=== PATIENT | male | born 1940 | race Two or more races ===

== ENCOUNTER → 2017-07-25 | Outpatient (CLI) | payer BC ==
[2017-07-25 10:15] LABS: HEMATOCRIT 40.4 % (37.9-51.0); HEMOGLOBIN 13.6 g/dL (13.5-17.0); MEAN CORPUSCULAR HEMOGLOBIN 29.4 pg (27.0-33.4); MEAN CORPUSCULAR HGB CONC 33.6 g/dL (32.0-36.0); MEAN CORPUSCULAR VOLUME 87 fl (80-97); PLATELET COUNT 158 10^3/uL (150-450); RED BLOOD COUNT 4.63 10^6/uL (4.35-5.55); RED CELL DISTRIBUTION WIDTH 14.1 % (11.5-14.0); WHITE BLOOD COUNT 5.6 10^3/uL (4.0-10.5)
[2017-07-25 10:48] LABS: ANION GAP 9 (5-19); BLOOD UREA NITROGEN 15 mg/dL (7-20); CALCIUM 9.6 mg/dL (8.4-10.2); CARBON DIOXIDE 31 mmol/L (22-30); CHLORIDE 105 mmol/L (98-107); GLUCOSE 108 mg/dL (75-110); POTASSIUM 4.4 mmol/L (3.6-5.0)
== END ==
LOC: OD 09:22
PROVIDERS: ATTEND Internal Medicine Cardiovascular Disease
DX: I49.9 Cardiac arrhythmia, unspecified (principal); E78.2 Mixed hyperlipidemia; I10 Essential (primary) hypertension
CPT/HCPCS: 36415; 80048; 83735; 84443; 85027

== ENCOUNTER → 2017-09-13 | Outpatient (CLI) | payer BC ==
[2017-09-13 11:30] LABS: ALANINE AMINOTRANSFERASE 22 U/L (21-72); ALBUMIN 4.4 g/dL (3.5-5.0); ALKALINE PHOSPHATASE 67 U/L (38-126); ASPARTATE AMINO TRANSFERASE 22 U/L (17-59); BILIRUBIN,DIRECT 0.2 mg/dL (0.0-0.4); BILIRUBIN,TOTAL 0.8 mg/dL (0.2-1.3); CHOLESTEROL 213.29 mg/dL (0-200); CREATINE KINASE 47 U/L (55-170); TOTAL PROTEIN 7.3 g/dL (6.3-8.2); TRIGLYCERIDES 155 mg/dL (<150)
[2017-09-13 11:41] LABS: DIRECT LDL 124 mg/dL (<100)
== END ==
LOC: LAB 10:13
PROVIDERS: ATTEND Internal Medicine Cardiovascular Disease
DX: E78.2 Mixed hyperlipidemia (principal); R94.31 Abnormal electrocardiogram [ECG] [EKG]; I49.9 Cardiac arrhythmia, unspecified
CPT/HCPCS: 36415; 80061; 80076; 82550

== ENCOUNTER → 2017-11-04 | Outpatient (CLI) | payer BC ==
[2017-11-04 09:42] LABS: ALANINE AMINOTRANSFERASE 33 U/L (21-72); ALBUMIN 4.4 g/dL (3.5-5.0); ALKALINE PHOSPHATASE 70 U/L (38-126); ASPARTATE AMINO TRANSFERASE 25 U/L (17-59); BILIRUBIN,DIRECT 0.2 mg/dL (0.0-0.4); BILIRUBIN,TOTAL 1.1 mg/dL (0.2-1.3); CHOLESTEROL 150.77 mg/dL (0-200); TOTAL PROTEIN 7.7 g/dL (6.3-8.2); TRIGLYCERIDES 120 mg/dL (<150)
[2017-11-04 09:54] LABS: DIRECT LDL 70 mg/dL (<100)
== END ==
LOC: OD 08:41
PROVIDERS: ATTEND Internal Medicine Cardiovascular Disease
DX: E78.2 Mixed hyperlipidemia (principal); Z79.899 Other long term (current) drug therapy
CPT/HCPCS: 36415; 80061; 80076

== ENCOUNTER → 2018-05-17 | Outpatient (CLI) | payer BC ==
[2018-05-17 11:35] LABS: ALANINE AMINOTRANSFERASE 35 U/L (21-72); ALBUMIN 4.3 g/dL (3.5-5.0); ALKALINE PHOSPHATASE 83 U/L (38-126); ASPARTATE AMINO TRANSFERASE 26 U/L (17-59); BILIRUBIN,DIRECT 0.1 mg/dL (0.0-0.4); BILIRUBIN,TOTAL 1.1 mg/dL (0.2-1.3); CHOLESTEROL 174.63 mg/dL (0-200); TOTAL PROTEIN 6.7 g/dL (6.3-8.2); TRIGLYCERIDES 120 mg/dL (<150)
[2018-05-17 11:46] LABS: DIRECT LDL 101 mg/dL (<100)
== END ==
LOC: LAB 11:03
PROVIDERS: ATTEND Internal Medicine Cardiovascular Disease
DX: E78.2 Mixed hyperlipidemia (principal); Z79.899 Other long term (current) drug therapy
CPT/HCPCS: 36415; 80061; 80076

== ENCOUNTER → 2018-06-11 | Outpatient (CLI) | payer BC, MEDICARE ==
[2018-06-11 10:58] LABS: APPEARANCE,URINE CLEAR; BILIRUBIN,URINE NEGATIVE (NEGATIVE); COLOR,URINE YELLOW; GLUCOSE, URINE NEGATIVE (NEGATIVE); KETONES,URINE NEGATIVE (NEGATIVE); LEUKOCYTE ESTERASE,URINE SMALL (NEGATIVE); NITRITE,URINE NEGATIVE (NEGATIVE); PROTEIN,URINE NEGATIVE (NEGATIVE); URINE SPECIFIC GRAVITY 1.016; UROBILINOGEN,URINE NEGATIVE mg/dL (<2.0)
[2018-06-11 11:22] LABS: ALANINE AMINOTRANSFERASE 51 U/L (21-72); ALBUMIN 4.5 g/dL (3.5-5.0); ALKALINE PHOSPHATASE 81 U/L (38-126); ANION GAP 5 (5-19); ASPARTATE AMINO TRANSFERASE 33 U/L (17-59); BILIRUBIN,DIRECT 0.3 mg/dL (0.0-0.4); BLOOD UREA NITROGEN 13 mg/dL (7-20); CALCIUM 9.7 mg/dL (8.4-10.2); CARBON DIOXIDE 30 mmol/L (22-30); CHLORIDE 104 mmol/L (98-107); CHOLESTEROL 136.05 mg/dL (0-200); GLUCOSE 126 mg/dL (75-110); POTASSIUM 3.5 mmol/L (3.6-5.0); SODIUM 138.7 mmol/L (137-145); TOTAL PROTEIN 7.5 g/dL (6.3-8.2); TRIGLYCERIDES 111 mg/dL (<150)
[2018-06-11 11:33] LABS: DIRECT LDL 70 mg/dL (<100)
[2018-06-11 12:18] LABS: ALANINE AMINOTRANSFERASE 51 U/L (21-72); ALBUMIN 4.5 g/dL (3.5-5.0); ALKALINE PHOSPHATASE 81 U/L (38-126); ASPARTATE AMINO TRANSFERASE 33 U/L (17-59); BILIRUBIN,DIRECT 0.3 mg/dL (0.0-0.4); CHOLESTEROL 136.05 mg/dL (0-200); DIRECT LDL 70 mg/dL (<100); TOTAL PROTEIN 7.5 g/dL (6.3-8.2); TRIGLYCERIDES 111 mg/dL (<150)
== END ==
LOC: LAB 10:25
PROVIDERS: ATTEND Internal Medicine Cardiovascular Disease
DX: E55.9 Vitamin D deficiency, unspecified (principal); E78.1 Pure hyperglyceridemia; E11.9 Type 2 diabetes mellitus without complications; I49.9 Cardiac arrhythmia, unspecified; Z79.899 Other long term (current) drug therapy
CPT/HCPCS: 36415; 80053; 80061; 80076; 81001; 82306; 83036